=== PATIENT | male | born 1935 | race Caucasian/White ===

== ENCOUNTER 2017-06-06 17:08 | Emergency (ER) | payer MEDICARE, OTHER ==
[~2017-06-06 17:08] MED LIST: Iopamidol 370 76% 100 ML VIAL ONE
[2017-06-06] MEDS ORDERED: Sodium Chloride 0.9% 1,000 ML ONE (17:42)
[2017-06-06 18:16] LABS: ALT (SGPT) 51 U/L (8-55); AST (SGOT) 50 U/L (5-34); Albumin 3.2 g/dL (3.4-4.8); Alkaline Phosphatase 193 U/L (40-150); Anion Gap 14 mmol/L (10-20); BUN (Urea Nitrogen) 24 mg/dL (8.4-25.7); Bilirubin, Total 5.9 mg/dL (0.2-1.2); CK (CPK) 228 U/L (30-200); Calc. Creatinine Clearance 0 mL/min (70-130); Calcium 9.3 mg/dL (7.8-10.44); Carbon Dioxide 28 mmol/L (23-31); Chloride 96 mmol/L (98-107); Estimated GFR-MDRD 79; Globulin 3.3 g/dL (2.4-3.5); Glucose 243 mg/dL (83-110); Potassium 4.2 mmol/L (3.5-5.1); Protein, Total 6.5 g/dL (5.8-8.1); Sodium 134 mmol/L (136-145)
[2017-06-06 18:19] LABS: CKMB 4.2 ng/mL (0-6.6); Troponin I 0.016 ng/mL (< 0.028)
--- NOTE | 2017-06-06 18:24 | RAD ---
SITTING PORTABLE CHEST ONE VIEW: History: 81-year-old male with dyspnea, history of hypertension, coronary artery disease, coronary artery byp ass graft and pacemaker with shortness of breath for 10 days with fever and cough. Comparison: 01-05-17 FINDINGS: Post underlying sternotomy and left ICD. Colon air interposed between right hemidiaphragm and liver. No confluent pneumonia or overt edema. Mild stable increased markings bilaterally. IMPRESSION: Minimal stable chronic increased markings bilaterally. Post-operative changes and left ICD. No evide nce for pneumonia or other acute process. POS: [facility]
[2017-06-06 18:31] LABS: #Basophils 0.1 thou/uL (0.0-0.2); #Lymphocytes 0.9 thou/uL (1.20-3.40); #Monocytes 1.3 thou/uL (0.11-0.59); #Neutrophils 12.2 thou/uL (1.40-6.50); %Eosinophils 0.2 % (0.0-10.0); %Monocytes 8.7 % (0.0-10.0); Differential Comment SCANNED; Hemoglobin 16.6 g/dL (14.0-18.0); MDiff Complete? YES; Macrocytosis MODERATE=16-30 cells (100X) (0-5/hpf); Mean Corpuscular HGB CONC 31.9 g/dL (32.0-36.0); Mean Corpuscular Hemoglobin 33.4 pg (27.0-31.0); Mean Platelet Volume 12.6 fL (7.4-10.4); PLT Morphology Comment Appears Decreased; Platelet Count 47 thou/uL (130-400); Polychromasia SLIGHT = 2-3 cells (100X) (0-2/hpf); RBC Distribution Width 13.8 % (11.5-14.5); Red Blood Cell (RBC) Count 4.97 mill/uL (4.70-6.10); White Blood Cell (WBC) Count 14.5 thou/uL (4.8-10.8)
[2017-06-06 18:32] LABS: INR-International Normal Ratio 1.4; PTT 29.2 SEC (22.9-36.1); Prothrombin Time 17.6 SEC (12.0-14.7)
[2017-06-06 18:54] LABS: D-Dimer Test 3.34 *mcg/mL (0.27-0.43)
[2017-06-06] MEDS ORDERED: methylPREDNISolone Sod Succ/PF 125 MG/2 ML VIAL ONE (19:09)
[2017-06-06] MEDS ORDERED: diphenhydrAMINE 50 MG/ML VIAL ONE (19:09)
[2017-06-06] MEDS ORDERED: Oxymetazoline HCl 0.05% ( 15 ML ) ONE (20:08)
--- NOTE | 2017-06-06 20:21 | CT ---
CT PULMONARY ANGIOGRAM OF THE CHEST INCLUDING 3D RENDERING: History: 81-year-old male with dyspnea and shortness of breath with elevated D-dimer, persistent cough. FINDINGS: Atherosclerosis of the aorta. No focal aortic aneurysm. In the upper abdomen there appear to be some dilated splenic or parasplenic veins with an abnormal somewhat small appearing liver concerning for cirrhosis and probable varices with some ascites. IMPRESSION: Central pulmonary arteries are free of thrombus. The more peripheral pulmonary arteries in the lower lobes are somewhat less than optimally evaluated but there is no definite CT evidence for significa nt acute PE. Elevated right hemidiaphragm. Colonic lung changes bilaterally. Evidence for cirrhosis with varices and ascites within the abdomen. POS: [facility]
== END 2017-06-06 20:50 | disposition home or self-care (01) ==
LOC: NAV ERS 17:08
DX: J40 Bronchitis, not specified as acute or chronic (principal); I12.0 Hypertensive chronic kidney disease with stage 5 chronic kidney disease or end stage renal disease; E11.22 Type 2 diabetes mellitus with diabetic chronic kidney disease; N18.6 End stage renal disease; R04.0 Epistaxis; D69.6 Thrombocytopenia, unspecified; I48.91 Unspecified atrial fibrillation; K21.9 Gastro-esophageal reflux disease without esophagitis; K74.60 Unspecified cirrhosis of liver; I85.00 Esophageal varices without bleeding; K72.90 Hepatic failure, unspecified without coma; Z87.891 Personal history of nicotine dependence
CPT/HCPCS: 71010; 71275; 80053; 82140; 82550; 82553; 83605; 83880; 84484; 85025; 85379; 85610; 85730; 87040; 93005; 94640; 96361; 96374; 96375; J1200; J2930; J7050; J7620